=== PATIENT | male | born 1980 | race Caucasian/White ===

== ENCOUNTER 2024-10-09 05:57 | Emergency (ER) | payer OTHER ==
[~2024-10-09] VITALS: Ht 175.3 cm; Wt 95.3 kg
--- NOTE | 2024-10-09 05:57 | NUR ---
C-COLLAR APPLIED AT THIS TIME.
[2024-10-09 06:11] LABS: BASOPHILS # (AUTO) 0.03 K/uL (0.00-0.20); BASOPHILS % (AUTO) 0.6 % (0.0-5.0); EOSINOPHILS # (AUTO) 0.08 K/uL (0.00-0.70); EOSINOPHILS % (AUTO) 1.6 % (0.0-8.0); IMMATURE GRANULOCYTE ABSOLUTE 0.02 K/uL (0-1); LYMPHOCYTES # (AUTO) 1.6 K/uL (1.0-4.8); LYMPHOCYTES % (AUTO) 32.4 % (21.0-51.0); MEAN CORPUSCULAR HEMOGLOBIN 27.4 pg (27.0-33.0); MEAN CORPUSCULAR HGB CONC 33.4 g/dL (32.0-36.0); MEAN CORPUSCULAR VOLUME 82.1 fL (79-99); MONOCYTES # (AUTO) 0.4 K/uL (0.1-1.0); MONOCYTES % (AUTO) 8.7 % (3.0-13.0); NEUTROPHILS # (AUTO) 2.8 K/uL (1.8-7.7); NEUTROPHILS % (AUTO) 56.3 % (40.0-77.0); PLATELET COUNT (AUTO) 280 K/uL (130-400); RED BLOOD CELL COUNT(AUTO) 5.36 MIL/uL (4.50-6.20); RED CELL DISTRIBUTION WIDTH 13.2 % (11.0-15.5); WHITE BLOOD COUNT (AUTO) 4.9 K/uL (4.8-10.8)
[2024-10-09 06:13] VITALS: BP 144/87; PULSE 76; RESP 12; TEMP 97.8; O2SAT 97
--- NOTE | 2024-10-09 06:23 | NUR ---
PT TAKEN TO CT AT THIS TIME.
[2024-10-09 06:24] LABS: CREATININE 1.4 mg/dL (0.5-1.3); POTASSIUM 4.2 mmol/L (3.5-5.1)
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
--- NOTE | 2024-10-09 06:46 | NUR ---
PT BACK FROM CT AT THIS TIME.
[2024-10-09] MEDS: ondanSETRON 4MG INJ IVP ONE (07:05)
[2024-10-09] MEDS: morPHINE 4 MG SYG IVP ONE (07:06)
[2024-10-09] MEDS: 0.9%NACL 1000ML 1,000 ML IV ONE (07:06)
[2024-10-09] MEDS ORDERED: ACET-66 PO (07:45)
--- NOTE | 2024-10-09 08:04 | NUR ---
0800 SEE TRAUMA FLOW SHEET. JODIE RN
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
--- NOTE | 2024-10-09 16:57 | EKG ---
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
== END 2024-10-09 08:04 | disposition home or self-care (01) ==
LOC: EDH 05:57
DX: S16.1XXA Strain of muscle, fascia and tendon at neck level, initial encounter (principal); S09.90XA Unspecified injury of head, initial encounter; E78.00 Pure hypercholesterolemia, unspecified; I10 Essential (primary) hypertension; V89.2XXA Person injured in unspecified motor-vehicle accident, traffic, initial encounter; Y93.89 Activity, other specified; Y92.89 Other specified places as the place of occurrence of the external cause; Y99.8 Other external cause status
CPT/HCPCS: 99285; 70450; 96374; 71045; 96361; 96375; 82550; 80048; 85025; 36415; 72125; 71250; 72128; 74176; 93005; J7030; J2405; J2270